=== PATIENT | male | born 1970 | race Asian ===

== ENCOUNTER 2024-08-31 20:25 | Inpatient (IN) | payer MEDICAID ==
[~2024-08-31] VITALS: Ht 175.3 cm; Wt 82.3 kg
[~2024-08-31 20:25] MED LIST: BUME1TAB50 PO; METF-1211 PO
[2024-08-31] MEDS: SODIUM CHLORIDE 0.9% 2,450 ML IV ONE (20:59)
[2024-08-31] MEDS ORDERED: 0.9% SODIUM CHLORIDE 10 ML SYRINGE IVP PRN (21:00)
[2024-08-31 21:06] LABS: GLUCOMETER DEV NAME(LOC) ERT.6; GLUCOSE,POINT OF CARE 158 MG/DL (70-110)
[2024-08-31 21:31] LABS: BASOPHILS % (AUTO) 0.5 % (0.0-2.0); EOSINOPHILS % (AUTO) 0.1 % (1.0-6.0); HEMATOCRIT 45.2 % (41-53); HEMOGLOBIN 15.4 g/dL (13.5-17.5); LYMPHOCYTES # (AUTO) 1.1 K/uL (1.0-4.8); LYMPHOCYTES % (AUTO) 15.2 % (22.0-44.0); MEAN CORPUSCULAR HEMOGLOBIN 31.9 pg (26.0-34.0); MEAN CORPUSCULAR HGB CONC 34.1 G/dL (31.0-37.0); MEAN CORPUSCULAR VOLUME 93 fL (80-100); MONOCYTES # (AUTO) 0.8 K/uL (0.1-1.0); NEUTROPHILS # (AUTO) 5.5 K/uL (1.8-7.7); NEUTROPHILS % (AUTO) 73.2 % (40.0-70.0); PLATELET COUNT (AUTO) 183 K/uL (150-450); RED BLOOD CELL COUNT(AUTO) 4.85 MIL/uL (4.50-5.90); RED CELL DISTRIBUTION WIDTH 17.4 % (11.5-14.5); WHITE BLOOD COUNT (AUTO) 7.5 K/uL (4.5-11.0)
[2024-08-31 21:40] LABS: ANION GAP 5 mmol/L (8-16); CALCIUM, TOTAL 8.7 mg/dL (8.8-10.5); CARBON DIOXIDE 37 mmol/L (22-29); CHLORIDE 88 mmol/L (98-107); CREATININE 3.06 mg/dL (0.60-1.30); GLOMERULAR FILTR. RATE CALC 21 mL/min (>60); GLUCOSE,RANDOM 141 mg/dL (70-110); SODIUM SERUM 130 mmol/L (136-145); UREA NITROGEN, BLOOD 70 mg/dL (7-18)
[2024-08-31 21:47] LABS: INFLUENZA TYPE A NEGATIVE FOR TYPE A (NEGATIVE); INFLUENZA TYPE B NEGATIVE FOR TYPE B (NEGATIVE)
[2024-08-31 21:48] LABS: PLATELET MORPHOLOGY COMMENT GIANT PLTS PRESENT
[2024-08-31 21:49] LABS: PROTHROMBIN TIME 12.3 SEC (9.4-11.6)
[2024-08-31 21:50] LABS: ALANINE AMINOTRANSFERASE 27 U/L (12-78); ALBUMIN 1.5 g/dL (3.4-5.0); ALKALINE PHOSPHATASE 422 U/L (46-116); ASPARTATE AMINOTRANSFERASE 143 U/L (15-37); BILIRUBIN,TOTAL 10.5 mg/dL (0.1-1.0); CREATINE KINASE, TOTAL ONLY 227 U/L (39-308); TOTAL PROTEIN, SERUM 6.2 g/dL (6.4-8.2); TROPONIN I-HIGH SENSITIVITY 43 ng/L (<76)
[2024-08-31 21:53] LABS: B-TYPE NATRIURETIC PEPTIDE 1820 pg/mL (0-100)
[2024-08-31] MEDS ORDERED: NOREPINEPHRINE 8 MG/0.9 % NACL 250 ML IV PRN (22:15)
[2024-08-31] MEDS: CefTRIAXone 1 GM/DEXTROSE 50 ML IV ONE (22:31)
[2024-08-31 22:44] LABS: COVID AG,FIA SOURCE NASAL SWAB
[2024-08-31] MEDS ORDERED: BISACODYL 10 MG RECTAL RECTAL SUPPOSITORY PR PRN (22:45)
[2024-08-31 23:01] LABS: SARS-COV2 (COVID) ANTIGEN,FIA Negative (Negative)
[2024-08-31] MEDS: VANCOMYCIN 1.5 GM/WATER(PEG) 300 ML IV ONE (23:18)
[2024-08-31] MEDS: HEPARIN SODIUM,PORCINE 5,000 UNITS/ML VIAL SQ SCH (23:42)
[2024-09-01] MEDS: PHENYLEPHRINE 200 MG/D5%-WATER 250 ML IV PRN (00:42)
[2024-09-01] MEDS: MORPHINE SULFATE 2 MG/ML SYRINGE IVP ONE ×2 (00:55→05:54)
[2024-09-01 02:10] LABS: APPEARANCE,URINE CLEAR (CLEAR); COLOR,URINE DARK YELLOW (YELLOW); GLUCOSE, URINE (UA) NEGATIVE (NEGATIVE); KETONES,URINE NEGATIVE (NEGATIVE); LEUKOCYTE ESTERASE ,URINE NEGATIVE (NEGATIVE); NITRATE,URINE NEGATIVE (NEGATIVE); OCCULT BLOOD,URINE NEGATIVE (NEGATIVE); PROTEIN,URINE 30-70 mg/dL (NEGATIVE)
[2024-09-01 02:17] LABS: ALCOHOL, URINE DRUG SCREEN NEGATIVE (NEGATIVE); AMPHET/METH SCREEN,URINE POSITIVE (NEGATIVE); BARBITURATE SCREEN, URINE NEGATIVE (NEGATIVE); BENZODIAZEPINES SCREEN,URINE NEGATIVE (NEGATIVE); CANNABINOID SCREEN,URINE NEGATIVE (NEGATIVE); COCAINE SCREEN,URINE NEGATIVE (NEGATIVE); METHADONE SCREEN, URINE NEGATIVE (NEGATIVE); OPIATE SCREEN,URINE NEGATIVE (NEGATIVE); PHENCYCLIDINE SCREEN,URINE NEGATIVE (NEGATIVE)
[2024-09-01 02:24] LABS: BILIRUBIN,URINE MODERATE (NEGATIVE)
[2024-09-01 02:28] LABS: BACTERIA,URINE None Seen /HPF (None Seen); RBC,URINE None Seen /HPF (0-2); SQUAMOUS EPITHELIAL CELL,UR Few /LPF (None Seen); WBC,URINE None Seen /HPF (0-5)
[2024-09-01] MEDS: PIPERACILLIN SODIUM/TAZOBACTAM 2.25 GM in DEXTROSE 5%-WATER 50 ML IV SCH (03:08)
[2024-09-01 06:23] LABS: CALCIUM, TOTAL 8.3 mg/dL (8.8-10.5); CREATININE 3.17 mg/dL (0.60-1.30); POTASSIUM 3.9 mmol/L (3.5-5.1)
[2024-09-01] MEDS: VANCOMYCIN HCL 750 MG in DEXTROSE 5%-WATER 250 ML IV SCH (08:15)
[2024-09-01] MEDS: PANTOPRAZOLE SODIUM 40 MG/VIAL IVP SCH (08:16)
[2024-09-01] MEDS: MORPHINE SULFATE 2 MG/ML SYRINGE IVP PRN (08:34)
[2024-09-01] MEDS: LORazepam 2 MG/ML VIAL IVP ONE (09:51)
[2024-09-01 09:57] LABS: TROPONIN I-HIGH SENSITIVITY 33 ng/L (<76)
[2024-09-01] MEDS: BUMETANIDE 0.25 MG/ML 4 ML VIAL IVP SCH (11:59)
[2024-09-01 16:31] LABS: BASOPHILS % (AUTO) 0.5 % (0.0-2.0); EOSINOPHILS % (AUTO) 0.1 % (1.0-6.0); HEMATOCRIT 46.7 % (41-53); HEMOGLOBIN 15.9 g/dL (13.5-17.5); LYMPHOCYTES # (AUTO) 1.8 K/uL (1.0-4.8); LYMPHOCYTES % (AUTO) 15.9 % (22.0-44.0); MEAN CORPUSCULAR HEMOGLOBIN 31.6 pg (26.0-34.0); MEAN CORPUSCULAR HGB CONC 34.1 G/dL (31.0-37.0); MEAN CORPUSCULAR VOLUME 93 fL (80-100); MONOCYTES # (AUTO) 1.3 K/uL (0.1-1.0); MONOCYTES % (AUTO) 11.1 % (2.0-9.0); NEUTROPHILS # (AUTO) 8.3 K/uL (1.8-7.7); NEUTROPHILS % (AUTO) 72.4 % (40.0-70.0); PLATELET COUNT (AUTO) 214 K/uL (150-450); RED BLOOD CELL COUNT(AUTO) 5.04 MIL/uL (4.50-5.90); RED CELL DISTRIBUTION WIDTH 17.7 % (11.5-14.5); WHITE BLOOD COUNT (AUTO) 11.5 K/uL (4.5-11.0)
[2024-09-01 16:41] LABS: CALCIUM, TOTAL 8.6 mg/dL (8.8-10.5); CREATININE 3.49 mg/dL (0.60-1.30); POTASSIUM 4.2 mmol/L (3.5-5.1)
[2024-09-01 16:48] LABS: ALBUMIN 1.5 g/dL (3.4-5.0); BILIRUBIN,DIRECT 8.1 mg/dL (0.00-0.20); BILIRUBIN,TOTAL 9.7 mg/dL (0.1-1.0); TOTAL PROTEIN, SERUM 6.2 g/dL (6.4-8.2)
[2024-09-01] MEDS: CHLORHEXIDINE GLUCONATE 2% TOWELETTE [2'S/6'S] TP SCH (21:12)
[2024-09-01 22:45] LABS: CREATININE,URINE RANDOM 110.5 mg/dL (30.0-125.0)
[2024-09-02] MEDS: ACETAMINOPHEN 325 MG TABLET PO PRN (00:11)
[2024-09-02 05:54] LABS: CALCIUM, TOTAL 8.7 mg/dL (8.8-10.5); CREATININE 4.01 mg/dL (0.60-1.30); POTASSIUM 4.5 mmol/L (3.5-5.1)
[2024-09-02 06:00] LABS: BASOPHILS % (AUTO) 0.4 % (0.0-2.0); EOSINOPHILS % (AUTO) 0.2 % (1.0-6.0); HEMATOCRIT 51.9 % (41-53); HEMOGLOBIN 17.5 g/dL (13.5-17.5); LYMPHOCYTES # (AUTO) 2.7 K/uL (1.0-4.8); LYMPHOCYTES % (AUTO) 25.4 % (22.0-44.0); MEAN CORPUSCULAR HEMOGLOBIN 31.4 pg (26.0-34.0); MEAN CORPUSCULAR HGB CONC 33.6 G/dL (31.0-37.0); MEAN CORPUSCULAR VOLUME 93 fL (80-100); NEUTROPHILS # (AUTO) 6.7 K/uL (1.8-7.7); PLATELET COUNT (AUTO) 196 K/uL (150-450); RED BLOOD CELL COUNT(AUTO) 5.56 MIL/uL (4.50-5.90); RED CELL DISTRIBUTION WIDTH 17.6 % (11.5-14.5); WHITE BLOOD COUNT (AUTO) 10.5 K/uL (4.5-11.0)
[2024-09-02] MEDS: MIDODRINE HCL 5 MG TABLET PO SCH (09:14)
[2024-09-02] MEDS: ALBUMIN HUMAN 25%-12.5GM/50ML 50 ML IV SCH (09:25)
[2024-09-02] MEDS: NOREPINEPHRINE 8 MG/0.9 % NACL 250 ML IV PRN (13:35)
[2024-09-02 21:40] VITALS: BP 126/74; PULSE 103; RESP 14; TEMP 100.6
[2024-09-02] MEDS ORDERED: SODIUM CHLORIDE 0.9% 500 ML IV ONE (22:06)
[2024-09-02] MEDS: ONDANSETRON HCL 4 MG/2 ML VIAL IVP PRN (22:28)
[2024-09-02 22:45] LABS: GLUCOMETER DEV NAME(LOC) ICU.S6; GLUCOSE,POINT OF CARE 73 MG/DL (70-110)
[2024-09-03] VITALS (9 sets, daily range): BP systolic 100–129; BP diastolic 52–100; PULSE 96–100; RESP 12–35; TEMP 97.4–99.5; O2SAT 68–97
[2024-09-03] MEDS ORDERED: PIPERACILLIN SODIUM/TAZOBACTAM 2.25 GM in DEXTROSE 5%-WATER 50 ML IV SCH (00:30)
[2024-09-03] MEDS: ETHYL ALCOHOL 62% ANTISEPTIC NASAL SANITIZER 0.6 ML AMPUL NASAL SCH (00:35)
[2024-09-03 01:56] LABS: GLUCOMETER DEV NAME(LOC) ICU.S6; GLUCOSE,POINT OF CARE 106 MG/DL (70-110)
[2024-09-03 02:21] LABS: ABG BASE EXCESS -5.6 mmol/L (-2.0-3.0); ABG CARBOXYHEMOGLOBIN 1.1 % (0.5-1.5); ABG HCO3 21.2 mmol/L (21.0-28.0); ABG METHEMOGLOBIN 0.3 % (0.0-1.5); ABG OXYGEN CONTENT 24.9 mL/dL (15.0-23.0); ABG OXYHEMOGLOBIN 98.6 % (94.0-98.0); ABG PCO2 30 mmHg (32.0-48.0); ABG PH 7.413 (7.350-7.450); ABG TOTAL HEMOGLOBIN 17.4 G/dL (13.5-17.5); SOURCE, BLOOD GAS ARTERIAL; TEMPERATURE, FAHRENHEIT, BG 98.2 FAHREN (96.0-98.6)
[2024-09-03 02:49] LABS: PO2, ARTERIAL BG 336.1 mmHg (83.0-108.0)
[2024-09-03 02:50] LABS: ALLEN TEST, BLOOD GAS Positive; O2 DEVICE,BLOOD GAS NONREBREATHER (ROOM AIR); SITE, BLOOD GAS LFT RADIAL
[2024-09-03] MEDS: DEXTROSE 50%-WATER 25 GM/50 ML SYRINGE IVP PRN (03:48)
[2024-09-03 04:46] LABS: GLUCOMETER DEV NAME(LOC) ICU.S6; GLUCOSE,POINT OF CARE 62 MG/DL (70-110)
[2024-09-03 04:46] LABS: GLUCOMETER DEV NAME(LOC) ICU.S6; GLUCOSE,POINT OF CARE 133 MG/DL (70-110)
[2024-09-03 04:54] LABS: ABG BASE EXCESS -1.8 mmol/L (-2.0-3.0); ABG CARBOXYHEMOGLOBIN 0.9 % (0.5-1.5); ABG HCO3 23.3 mmol/L (21.0-28.0); ABG METHEMOGLOBIN 0.3 % (0.0-1.5); ABG OXYGEN CONTENT 24.3 mL/dL (15.0-23.0); ABG OXYGEN SATURATION 99.2 % (94.0-98.0); ABG PCO2 39 mmHg (32.0-48.0); ABG PH 7.394 (7.350-7.450); ABG TOTAL HEMOGLOBIN 17.5 G/dL (13.5-17.5); PO2, ARTERIAL BG 158.8 mmHg (83.0-108.0); SOURCE, BLOOD GAS ARTERIAL; TEMPERATURE, FAHRENHEIT, BG 97.4 FAHREN (96.0-98.6)
[2024-09-03 04:55] LABS: ALLEN TEST, BLOOD GAS Positive; INSPIRATORY TIME, BG 0.9 SEC; O2 DEVICE,BLOOD GAS BIPAP (ROOM AIR); SITE, BLOOD GAS RT RADIAL
[2024-09-03 06:16] LABS: BASOPHILS % (AUTO) 0.4 % (0.0-2.0); EOSINOPHILS % (AUTO) 0.2 % (1.0-6.0); HEMATOCRIT 52.2 % (41-53); HEMOGLOBIN 17.3 g/dL (13.5-17.5); LYMPHOCYTES # (AUTO) 2.6 K/uL (1.0-4.8); LYMPHOCYTES % (AUTO) 22.3 % (22.0-44.0); MEAN CORPUSCULAR HEMOGLOBIN 31.4 pg (26.0-34.0); MEAN CORPUSCULAR HGB CONC 33.2 G/dL (31.0-37.0); MEAN CORPUSCULAR VOLUME 95 fL (80-100); MONOCYTES # (AUTO) 1.1 K/uL (0.1-1.0); MONOCYTES % (AUTO) 9.5 % (2.0-9.0); NEUTROPHILS % (AUTO) 67.6 % (40.0-70.0); RED BLOOD CELL COUNT(AUTO) 5.51 MIL/uL (4.50-5.90); RED CELL DISTRIBUTION WIDTH 18.1 % (11.5-14.5); WHITE BLOOD COUNT (AUTO) 11.8 K/uL (4.5-11.0)
[2024-09-03 06:39] LABS: CALCIUM, TOTAL 8.2 mg/dL (8.8-10.5); CREATININE 4.63 mg/dL (0.60-1.30); POTASSIUM 4.6 mmol/L (3.5-5.1); VANCOMYCIN,RANDOM 31.9 mcg/mL (25.0-50.0)
[2024-09-03 06:50] LABS: PLATELET COUNT (AUTO) 208 K/uL (150-450)
[2024-09-03] MEDS ORDERED: VANCOMYCIN 1GM/WATER(PEG/NADA) 200 ML IV PRN (07:15)
[2024-09-03] MEDS: BUMETANIDE 0.25 MG/ML 4 ML VIAL IVP SCH (09:57)
[2024-09-03] MEDS ORDERED: SODIUM CHLORIDE 0.9% 500 ML IV ONE (10:30)
[2024-09-03] MEDS ORDERED: SODIUM CHLORIDE 0.9% 250 ML IV ONE ×3 (11:45→23:43)
[2024-09-03 12:15] LABS: ABG CARBOXYHEMOGLOBIN 1.2 % (0.5-1.5); ABG HCO3 21.6 mmol/L (21.0-28.0); ABG METHEMOGLOBIN 0.1 % (0.0-1.5); ABG OXYGEN CONTENT 23.2 mL/dL (15.0-23.0); ABG OXYGEN SATURATION 97.4 % (94.0-98.0); ABG OXYHEMOGLOBIN 96.1 % (94.0-98.0); ABG PCO2 36 mmHg (32.0-48.0); ABG PH 7.389 (7.350-7.450); ABG TOTAL HEMOGLOBIN 17.1 G/dL (13.5-17.5); O2 DEVICE,BLOOD GAS CANNULA (ROOM AIR); PO2, ARTERIAL BG 97.7 mmHg (83.0-108.0); SITE, BLOOD GAS ARTERIAL LINE; SOURCE, BLOOD GAS ARTERIAL; TEMPERATURE, FAHRENHEIT, BG 96.1 FAHREN (96.0-98.6)
[2024-09-03 12:16] LABS: ABG A-A DIFF O2 119.1 mmHg (10-20.0)
[2024-09-03] MEDS: PIPERACILLIN SODIUM/TAZOBACTAM 2.25 GM in DEXTROSE 5%-WATER 50 ML IV SCH (13:51)
[2024-09-03 14:26] LABS: GLUCOMETER DEV NAME(LOC) ICU.S6; GLUCOSE,POINT OF CARE 72 MG/DL (70-110)
[2024-09-03 18:21] LABS: GLUCOMETER DEV NAME(LOC) ICU.S6; GLUCOSE,POINT OF CARE 102 MG/DL (70-110)
[2024-09-03] MEDS: LOPERAMIDE HCL 2 MG CAPSULE PO ONE (18:24)
[2024-09-03 18:53] LABS: C.DIFF GDH ANTIGEN, Stool Negative (Negative)
[2024-09-03 18:54] LABS: C.DIFF TOXINS A&B, Stool Negative (Negative)
[2024-09-03 23:21] LABS: GLUCOMETER DEV NAME(LOC) ICUN.5; GLUCOSE,POINT OF CARE 125 MG/DL (70-110)
[2024-09-03 23:21] LABS: GLUCOMETER DEV NAME(LOC) ICUN.5; GLUCOSE,POINT OF CARE 55 MG/DL (70-110)
[2024-09-03 23:21] LABS: GLUCOMETER DEV NAME(LOC) ICUN.5; GLUCOSE,POINT OF CARE 103 MG/DL (70-110)
[2024-09-03 23:41] LABS: PROTEIN,URINE RANDOM 291 mg/dL (0-11.9); SODIUM,URINE RANDOM 35 mmol/l (20-110); UREA NITROGEN,URINE RANDOM 314 mg/dL (350-1000)
[2024-09-04] VITALS (7 sets, daily range): BP systolic 100–127; BP diastolic 68–94; PULSE 98–99; RESP 15–20; TEMP 97.7–99.5; O2SAT 95–99
[2024-09-04 06:12] LABS: CALCIUM, TOTAL 7.2 mg/dL (8.8-10.5); CREATININE 5.42 mg/dL (0.60-1.30); POTASSIUM 4.7 mmol/L (3.5-5.1)
[2024-09-04 06:40] LABS: GLUCOMETER DEV NAME(LOC) ICUN.5; GLUCOSE,POINT OF CARE 58 MG/DL (70-110)
[2024-09-04 06:40] LABS: GLUCOMETER DEV NAME(LOC) ICUN.5; GLUCOSE,POINT OF CARE 118 MG/DL (70-110)
[2024-09-04 06:40] LABS: GLUCOMETER DEV NAME(LOC) ICUN.5; GLUCOSE,POINT OF CARE 111 MG/DL (70-110)
[2024-09-04] MEDS: LOPERAMIDE HCL 2 MG CAPSULE PO ONE (09:15)
[2024-09-04 13:01] LABS: GLUCOMETER DEV NAME(LOC) ICUN.5; GLUCOSE,POINT OF CARE 149 MG/DL (70-110)
[2024-09-04 18:26] LABS: GLUCOMETER DEV NAME(LOC) ICU.S6; GLUCOSE,POINT OF CARE 136 MG/DL (70-110)
[2024-09-04 22:01] LABS: GLUCOMETER DEV NAME(LOC) ICUN.5; GLUCOSE,POINT OF CARE 138 MG/DL (70-110)
[2024-09-05] VITALS (11 sets, daily range): BP systolic 91–129; BP diastolic 42–73; PULSE 94–99; RESP 16–20; TEMP 96.1–99.3; O2SAT 95–97
[2024-09-05] MEDS ORDERED: SODIUM CHLORIDE 0.9% 250 ML IV ONE (04:48)
[2024-09-05 06:30] LABS: LYMPHOCYTES # (AUTO) 1.5 K/uL (1.0-4.8); MONOCYTES # (AUTO) 0.7 K/uL (0.1-1.0)
[2024-09-05 06:34] LABS: BASOPHILS % (AUTO) 0.9 % (0.0-2.0); CALCIUM, TOTAL 7.3 mg/dL (8.8-10.5); CREATININE 5.55 mg/dL (0.60-1.30); EOSINOPHILS % (AUTO) 1.8 % (1.0-6.0); HEMATOCRIT 43.3 % (41-53); LYMPHOCYTES % (AUTO) 16.2 % (22.0-44.0); MAGNESIUM 2.2 mg/dL (1.80-2.40); MEAN CORPUSCULAR HEMOGLOBIN 32.3 pg (26.0-34.0); MEAN CORPUSCULAR HGB CONC 34.6 G/dL (31.0-37.0); MEAN CORPUSCULAR VOLUME 93 fL (80-100); MONOCYTES % (AUTO) 7.2 % (2.0-9.0); NEUTROPHILS # (AUTO) 6.8 K/uL (1.8-7.7); NEUTROPHILS % (AUTO) 73.9 % (40.0-70.0); PHOSPHORUS 8.2 mg/dL (2.5-4.9); POTASSIUM 3.9 mmol/L (3.5-5.1); RED BLOOD CELL COUNT(AUTO) 4.64 MIL/uL (4.50-5.90); RED CELL DISTRIBUTION WIDTH 17.9 % (11.5-14.5); VANCOMYCIN,RANDOM 23.2 mcg/mL (25.0-50.0); WHITE BLOOD COUNT (AUTO) 9.2 K/uL (4.5-11.0)
[2024-09-05 07:31] LABS: GLUCOMETER DEV NAME(LOC) ICU.S6; GLUCOSE,POINT OF CARE 127 MG/DL (70-110)
[2024-09-05 07:36] LABS: PLATELET COUNT (AUTO) 164 K/uL (150-450)
[2024-09-05 08:11] LABS: GLUCOMETER DEV NAME(LOC) ICUN.5; GLUCOSE,POINT OF CARE 155 MG/DL (70-110)
[2024-09-05] MEDS ORDERED: MIDAZOLAM HCL 2 MG/2 ML VIAL ONE (10:12)
[2024-09-05] MEDS ORDERED: LIDOCAINE/PF 1% 30 ML VIAL ONE (10:12)
[2024-09-05] MEDS ORDERED: FentaNYL CITRATE PF 100 MCG/2 ML VIAL ONE (10:12)
[2024-09-05] MEDS ORDERED: SODIUM BICARBONATE 50 MEQ/50 ML VIAL ONE (10:13)
[2024-09-05] MEDS: LIDOCAINE 1% 30 ML/SOD BICARB 8.4% 4 ML SQ ONE (11:03)
[2024-09-05] MEDS: SODIUM CHLORIDE 0.9% 500 ML IV ONE (11:04)
[2024-09-05] MEDS: INSULIN LISPRO 100 UNITS/ML SQ PRN (12:59)
[2024-09-05 13:26] LABS: GLUCOMETER DEV NAME(LOC) ICUN.5; GLUCOSE,POINT OF CARE 211 MG/DL (70-110)
[2024-09-05] MEDS ORDERED: HEPARIN SODIUM,PORCINE 1,000 UNITS/ML VIAL IVP ONE (17:37)
[2024-09-05] MEDS ORDERED: ALBUMIN HUMAN 25%-12.5GM/50ML IV BOTTLE IV ONE (17:37)
[2024-09-05 19:36] LABS: GLUCOMETER DEV NAME(LOC) ICUN.5; GLUCOSE,POINT OF CARE 173 MG/DL (70-110)
[2024-09-06] VITALS (14 sets, daily range): BP systolic 92–118; BP diastolic 46–80; PULSE 91–98; RESP 14–23; TEMP 95.9–98.5; O2SAT 93–99
[2024-09-06 00:10] LABS: GLUCOMETER DEV NAME(LOC) ICU.S6; GLUCOSE,POINT OF CARE 105 MG/DL (70-110)
[2024-09-06 05:46] LABS: GLUCOMETER DEV NAME(LOC) ICUN.5; GLUCOSE,POINT OF CARE 110 MG/DL (70-110)
[2024-09-06 05:54] LABS: BASOPHILS % (AUTO) 0.8 % (0.0-2.0); EOSINOPHILS % (AUTO) 0.8 % (1.0-6.0); HEMATOCRIT 40.5 % (41-53); LYMPHOCYTES # (AUTO) 0.9 K/uL (1.0-4.8); MEAN CORPUSCULAR HEMOGLOBIN 32.6 pg (26.0-34.0); MEAN CORPUSCULAR HGB CONC 34.7 G/dL (31.0-37.0); MEAN CORPUSCULAR VOLUME 94 fL (80-100); MONOCYTES # (AUTO) 0.7 K/uL (0.1-1.0); NEUTROPHILS # (AUTO) 5.8 K/uL (1.8-7.7); NEUTROPHILS % (AUTO) 77.4 % (40.0-70.0); RED CELL DISTRIBUTION WIDTH 17.9 % (11.5-14.5); WHITE BLOOD COUNT (AUTO) 7.5 K/uL (4.5-11.0)
[2024-09-06 05:56] LABS: CALCIUM, TOTAL 7.7 mg/dL (8.8-10.5); CREATININE 4.76 mg/dL (0.60-1.30); MAGNESIUM 2.1 mg/dL (1.80-2.40); PHOSPHORUS 5.9 mg/dL (2.5-4.9); POTASSIUM 3.8 mmol/L (3.5-5.1)
[2024-09-06 06:37] LABS: PLATELET COUNT (AUTO) 135 K/uL (150-450)
[2024-09-06] MEDS ORDERED: SODIUM CHLORIDE 0.9% 2,000 ML ONE (07:46)
[2024-09-06] MEDS: HEPARIN SODIUM,PORCINE 1,000 UNITS/ML VIAL IVP PRN ×2 (11:20→11:21)
[2024-09-06 17:05] LABS: GLUCOMETER DEV NAME(LOC) ICU.S6; GLUCOSE,POINT OF CARE 174 MG/DL (70-110)
[2024-09-06 19:46] LABS: GLUCOMETER DEV NAME(LOC) ICUN.5; GLUCOSE,POINT OF CARE 134 MG/DL (70-110)
[2024-09-07] VITALS: BP 112/72; PULSE 128; RESP 20; TEMP 98.3; O2SAT 93
[2024-09-07] LABS: GLUCOMETER DEV NAME(LOC) ICU.S6; GLUCOSE,POINT OF CARE 115 MG/DL (70-110)
[2024-09-07] MEDS: VANCOMYCIN HCL 1 GM/D5% WATER 200 ML IV ONE
[2024-09-07] MEDS: HydrOXYzine HCL 25 MG TABLET PO SCH (00:51)
[2024-09-07 04:00] VITALS: BP 103/35; PULSE 125; PULSE 137; RESP 21; TEMP 98; O2SAT 93
[2024-09-07] MEDS ORDERED: SODIUM CHLORIDE 0.9% 500 ML IV ONE ×2 (04:35→13:56)
[2024-09-07 05:46] LABS: GLUCOMETER DEV NAME(LOC) ICU.S6; GLUCOSE,POINT OF CARE 80 MG/DL (70-110)
[2024-09-07 06:42] LABS: CALCIUM, TOTAL 8.8 mg/dL (8.8-10.5); CREATININE 4.34 mg/dL (0.60-1.30)
[2024-09-07 08:00] VITALS: BP 106/68; PULSE 94; RESP 16; O2SAT 93
[2024-09-07] MEDS: DIGOXIN 250 MCG/ML 2 ML AMP IVP ONE (08:45)
[2024-09-07] MEDS: LORazepam 2 MG/ML VIAL IVP ONE (10:21)
[2024-09-07] MEDS: HALOPERIDOL LACTATE 5 MG/ML VIAL IVP ONE (11:26)
[2024-09-07] MEDS: LACTULOSE 20 GM/30 ML SOLUTION UDCUP PO ONE (11:26)
[2024-09-07] MEDS ORDERED: DEXTROSE 50%-WATER 25 GM/50 ML SYRINGE IVP ONE ×2 (11:45→12:30)
[2024-09-07 12:00] VITALS: BP 89/58; PULSE 84; PULSE 89; RESP 19; TEMP 97.4; O2SAT 95
[2024-09-07 12:36] LABS: GLUCOMETER DEV NAME(LOC) ICUN.5; GLUCOSE,POINT OF CARE 65 MG/DL (70-110)
[2024-09-07 12:36] LABS: GLUCOMETER DEV NAME(LOC) ICUN.5; GLUCOSE,POINT OF CARE 114 MG/DL (70-110)
[2024-09-07 12:40] LABS: ALBUMIN 2.3 g/dL (3.4-5.0); BILIRUBIN,DIRECT 11.7 mg/dL (0.00-0.20); BILIRUBIN,TOTAL 16.8 mg/dL (0.1-1.0); TOTAL PROTEIN, SERUM 6.7 g/dL (6.4-8.2)
[2024-09-07 12:45] LABS: ABG BASE EXCESS -18.8 mmol/L (-2.0-3.0); ABG CARBOXYHEMOGLOBIN 2.2 % (0.5-1.5); ABG HCO3 10.8 mmol/L (21.0-28.0); ABG METHEMOGLOBIN 0.1 % (0.0-1.5); ABG OXYGEN CONTENT 7.3 mL/dL (15.0-23.0); ABG OXYHEMOGLOBIN 68.7 % (94.0-98.0); ABG PH 7.296 (7.350-7.450); ABG TOTAL HEMOGLOBIN 7.5 G/dL (13.5-17.5); TEMPERATURE, FAHRENHEIT, BG 97.7 FAHREN (96.0-98.6)
[2024-09-07 12:47] LABS: ABG PCO2 16 mmHg (32.0-48.0)
[2024-09-07 12:48] LABS: ABG OXYGEN SATURATION 70.3 % (94.0-98.0); O2 DEVICE,BLOOD GAS ROOM AIR (ROOM AIR); SITE, BLOOD GAS OTHER; SOURCE, BLOOD GAS VENOUS
[2024-09-07] MEDS ORDERED: IOHEXOL 350 MG/ML 100 ML VIAL ONE (13:03)
[2024-09-07] MEDS ORDERED: SODIUM CHLORIDE 0.9% 100 ML ONE (13:03)
[2024-09-07] MEDS ORDERED: IODIXANOL 320 MG/ML 50 ML VIAL ONE (13:42)
[2024-09-07] MEDS ORDERED: SODIUM CHLORIDE 0.9% 1,000 ML ONE (13:49)
[2024-09-07] MEDS ORDERED: SODIUM CHLORIDE 0.9% 1,000 ML IV ONE (14:00)
[2024-09-07] MEDS ORDERED: EPINEPHrine 5 MG in DEXTROSE 5%-WATER 245 ML IV PRN (15:00)
[2024-09-07 15:06] LABS: HEMATOCRIT 46.8 % (41-53); HEMOGLOBIN 14.7 g/dL (13.5-17.5); MEAN CORPUSCULAR HEMOGLOBIN 31.3 pg (26.0-34.0); MEAN CORPUSCULAR HGB CONC 31.5 G/dL (31.0-37.0); MEAN CORPUSCULAR VOLUME 99 fL (80-100); RED BLOOD CELL COUNT(AUTO) 4.71 MIL/uL (4.50-5.90); RED CELL DISTRIBUTION WIDTH 19.3 % (11.5-14.5); WHITE BLOOD COUNT (AUTO) 11.4 K/uL (4.5-11.0)
[2024-09-07 15:08] LABS: PLATELET COUNT (AUTO) 81 K/uL (150-450)
[2024-09-07 15:23] LABS: BILIRUBIN,TOTAL 15.8 mg/dL (0.1-1.0); CREATININE 4.69 mg/dL (0.60-1.30); PHOSPHORUS 7.2 mg/dL (2.5-4.9); POTASSIUM 5.2 mmol/L (3.5-5.1); TOTAL PROTEIN, SERUM 6.1 g/dL (6.4-8.2); TROPONIN I-HIGH SENSITIVITY 69 ng/L (<76)
[2024-09-07 15:27] LABS: CALCIUM, TOTAL 14.3 mg/dL (8.8-10.5)
[2024-09-07 15:31] LABS: LACTIC ACID 10.9 mmol/L (0.4-2.0)
[2024-09-07 15:34] LABS: BAND NEUTROPHILS % (MANUAL) 0 % (0-5)
[2024-09-07 15:39] LABS: LYMPHOCYTES % (MANUAL) 36 % (22-44); METAMYELOCYTES % 4 % (0-0); MONOCYTES % (MANUAL) 19 % (2-9); PLATELET MORPHOLOGY COMMENT GIANT PLTS PRESENT; REACTIVE LYMPHOCYTES 8 % (0-0); SEGMENTED NEUTROPHILS % 33 % (40-70); TOTAL CELLS COUNTED 100
[2024-09-07] MEDS ORDERED: SODIUM CHLORIDE 1 GM TABLET PO SCH (16:00)
[2024-09-07 16:01] LABS: GLUCOMETER DEV NAME(LOC) SDS.; GLUCOSE,POINT OF CARE 149 MG/DL (70-110)
[2024-09-07 16:01] LABS: GLUCOMETER DEV NAME(LOC) SDS.; GLUCOSE,POINT OF CARE 68 MG/DL (70-110)
[2024-09-08] MEDS ORDERED: MIDAZOLAM HCL 2 MG/2 ML VIAL IVP ONE (00:32)
== END 2024-09-08 00:33 | DRG 720 ==
LOC: EMS 20:25 → UNDOADMIN 22:48 → EDH 22:48 → ICU 09-02 21:37
PROVIDERS: ADMIT Internal Medicine; ATTEND Internal Medicine
PROC: 5A1D70Z Performance of Urinary Filtration, Intermittent, Less than 6 Hours Per Day (ICD-10-PCS; principal; 2024-09-03)
PROC: 5A1D70Z Performance of Urinary Filtration, Intermittent, Less than 6 Hours Per Day (ICD-10-PCS; 2024-09-03)
PROC: 5A09357 Assistance with Respiratory Ventilation, Less than 24 Consecutive Hours, Continuous Positive Airway Pressure (ICD-10-PCS; 2024-09-03)
PROC: 02HV33Z Insertion of Infusion Device into Superior Vena Cava, Percutaneous Approach (ICD-10-PCS; 2024-09-05)
PROC: B5181ZA Fluoroscopy of Superior Vena Cava using Low Osmolar Contrast, Guidance (ICD-10-PCS; 2024-09-05)
PROC: B548ZZA Ultrasonography of Superior Vena Cava, Guidance (ICD-10-PCS; 2024-09-05)
PROC: 5A12012 Performance of Cardiac Output, Single, Manual (ICD-10-PCS; 2024-09-07)
DX: A41.9 Sepsis, unspecified organism (principal); N17.0 Acute kidney failure with tubular necrosis; J96.01 Acute respiratory failure with hypoxia; R65.21 Severe sepsis with septic shock; G93.41 Metabolic encephalopathy; I50.23 Acute on chronic systolic (congestive) heart failure; C25.9 Malignant neoplasm of pancreas, unspecified; K72.90 Hepatic failure, unspecified without coma; J18.9 Pneumonia, unspecified organism; E11.649 Type 2 diabetes mellitus with hypoglycemia without coma; E11.22 Type 2 diabetes mellitus with diabetic chronic kidney disease; I08.1 Rheumatic disorders of both mitral and tricuspid valves; I13.0 Hypertensive heart and chronic kidney disease with heart failure and stage 1 through stage 4 chronic kidney disease, or unspecified chronic kidney disease; N18.9 Chronic kidney disease, unspecified; C78.7 Secondary malignant neoplasm of liver and intrahepatic bile duct; F15.13 Other stimulant abuse with withdrawal; I50.82 Biventricular heart failure; I49.01 Ventricular fibrillation; I46.9 Cardiac arrest, cause unspecified; Z20.822 Contact with and (suspected) exposure to COVID-19; I48.92 Unspecified atrial flutter; E87.1 Hypo-osmolality and hyponatremia; I44.0 Atrioventricular block, first degree; I44.7 Left bundle-branch block, unspecified; K80.71 Calculus of gallbladder and bile duct without cholecystitis with obstruction; N28.1 Cyst of kidney, acquired; I42.7 Cardiomyopathy due to drug and external agent; Z91.199 Patient's noncompliance with other medical treatment and regimen due to unspecified reason; Z79.899 Other long term (current) drug therapy; Z95.810 Presence of automatic (implantable) cardiac defibrillator
CPT/HCPCS: 36245; 36556; 36600; 71045; 76000; 76700; 76937; 80048; 80053; 80076; 80202; 80307; 81001; 82140; 82271; 82550; 82570; 82805; 82962; 83036; 83605; 83690; 83735; 83880; 84100; 84145; 84156; 84300; 84484; 84540; 85025; 85610; 85730; 87040; 87081; 87324; 87340; 87449; 87804; 90935; 92950; 93005; 93306; 94660; 97116; 97163; 97530; 99291; G0480; J0171; J0696; J1160; J1630; J1644; J2060; J2250; J2270; J2370; J2405; J2470; J2543; J3010; J3370; J3490; J7030; J7040; J7050; J7060; P9047; Q9967; 36415-L1; 36415-TC